=== PATIENT | female | born 1955 | race Caucasian/White ===

== ENCOUNTER 2020-11-11 19:03 | Observation (INO) | payer MEDICARE ==
[~2020-11-11] VITALS: Ht 172.7 cm; Wt 99.3 kg
[2020-11-12 00:45] LABS: HEMOGLOBIN 16.5 gm/dl (12.3-15.3); RED BLOOD COUNT 5.48 M/UL (4.00-5.10); WHITE BLOOD COUNT 22.6 K/UL (4.5-11.0)
[2020-11-12 01:25] LABS: BUN/CREATININE RATIO 12 (0-10)
[2020-11-12] MEDS ORDERED: LISINOPRIL20 MG PO (17:09)
[2020-11-12] MEDS ORDERED: HYDROCHLOROTHIA25 MG PO (17:10)
[2020-11-12] MEDS ORDERED: METOPROLOL SUCC25 MG PO (17:10)
[2020-11-12] MEDS ORDERED: LEVOCETIRIZINE D5 MG PO (17:11)
[2020-11-12] MEDS ORDERED: PROBIOTIC 2 BI1 EACH PO (17:12)
[2020-11-12] MEDS ORDERED: ADULT LOW DOSE81 MG PO (17:12)
[2020-11-12] MEDS ORDERED: VITAMIN D250 MCG PO (17:12)
[2020-11-12] MEDS ORDERED: APPLE CIDER VI500 MG PO (17:13)
[2020-11-13 13:51] LABS: BUN/CREATININE RATIO 18 (0-10)
[2020-11-13 15:28] LABS: RED BLOOD COUNT 4.79 M/UL (4.00-5.10); WHITE BLOOD COUNT 18.4 K/UL (4.5-11.0)
[2020-11-13 15:29] LABS: HEMOGLOBIN 13.9 gm/dl (12.3-15.3)
[2020-11-14] MEDS ORDERED: HYDROCODON-ACE1 EAC4 PO (12:10)
== END 2020-11-14 17:17 | disposition home or self-care (01) ==
LOC: ER1 19:03 → CDU 11-12 03:15 → M/S 11-12 12:36
PROVIDERS: Student in an Organized Health Care Education/Training Program; ADMIT Surgery
DX: K35.891 Other acute appendicitis without perforation, with gangrene (principal); I10 Essential (primary) hypertension; K21.9 Gastro-esophageal reflux disease without esophagitis; E66.01 Morbid (severe) obesity due to excess calories; Z85.3 Personal history of malignant neoplasm of breast; Z68.33 Body mass index [BMI] 33.0-33.9, adult; Z88.0 Allergy status to penicillin; Z88.2 Allergy status to sulfonamides; Z79.82 Long term (current) use of aspirin; Z79.899 Other long term (current) drug therapy; Z20.822 Contact with and (suspected) exposure to COVID-19
CPT/HCPCS: 36415; 80048; 80053; 81001; 82550; 82553; 83605; 83690; 83735; 83874; 84100; 84484; 85025; 85379; 93005; 94760; 96374; 96375; 96376; 99285; G0378; J1100; J1335; J2250; J2270; J2405; J2704; J3010; J7120; Q9967; U0002

== ENCOUNTER 2020-11-30 20:07 | Inpatient (IN) | payer MEDICARE ==
[~2020-11-30] VITALS: Ht 172.7 cm; Wt 97.5 kg
[~2020-11-30 20:07] MED LIST: ADULT LOW DOSE81 MG PO; APPLE CIDER VI500 MG PO; HYDROCHLOROTHIA25 MG PO; HYDROCODON-ACE1 EAC4 PO; LEVOCETIRIZINE D5 MG PO; LISINOPRIL20 MG PO; METOPROLOL SUCC25 MG PO; PROBIOTIC 2 BI1 EACH PO; VITAMIN D250 MCG PO
[2020-11-30 20:46] LABS: HEMOGLOBIN 14.6 gm/dl (12.3-15.3); RED BLOOD COUNT 4.93 M/UL (4.00-5.10); WHITE BLOOD COUNT 15.2 K/UL (4.5-11.0)
[2020-12-01 12:00] LABS: HEMOGLOBIN 11.8 gm/dl (12.3-15.3); RED BLOOD COUNT 4.02 M/UL (4.00-5.10)
[2020-12-01 12:10] LABS: BUN/CREATININE RATIO 9 (0-10)
== END 2020-12-05 18:01 | disposition home or self-care (01) | DRG 919 ==
LOC: ER1 20:07 → CDU 21:47 → MED SURG 4 21:47
PROVIDERS: Physician Assistant Medical; ADMIT Surgery
DX: T81.89XA Other complications of procedures, not elsewhere classified, initial encounter (principal); K55.049 Acute infarction of large intestine, extent unspecified; K56.600 Partial intestinal obstruction, unspecified as to cause; I10 Essential (primary) hypertension; Z20.822 Contact with and (suspected) exposure to COVID-19; D72.829 Elevated white blood cell count, unspecified; Z85.3 Personal history of malignant neoplasm of breast; Z90.49 Acquired absence of other specified parts of digestive tract; Z90.12 Acquired absence of left breast and nipple; Z98.51 Tubal ligation status; Z80.3 Family history of malignant neoplasm of breast; Z80.41 Family history of malignant neoplasm of ovary
CPT/HCPCS: 80048; 80053; 81001; 83605; 85025; 87040; 93005; 94640; 94760; 96374; 96375; 99285; J0692; J2270; J2405; J3480; Q9967; U0002

== ENCOUNTER 2020-12-10 16:31 | Emergency (ER) | payer MEDICARE ==
[2020-12-10 18:49] LABS: HEMOGLOBIN 13.9 gm/dl (12.3-15.3); RED BLOOD COUNT 4.81 M/UL (4.00-5.10); WHITE BLOOD COUNT 10.3 K/UL (4.5-11.0)
[2020-12-10 19:29] LABS: BUN/CREATININE RATIO 17 (0-10)
[2020-12-10] MEDS ORDERED: BENTYL 20MG TAB20 MG PO (21:38)
[2020-12-10] MEDS ORDERED: CEFUROXIME500 MG PO (21:38)
[2020-12-10] MEDS ORDERED: ZOFRAN ODT 4 MG4 MG PO (21:38)
[2020-12-10] MEDS ORDERED: FLAGYL500 MG PO (21:38)
== END 2020-12-10 22:14 | disposition home or self-care (01) ==
LOC: ER1 16:31
PROVIDERS: Nurse Practitioner
DX: K52.9 Noninfective gastroenteritis and colitis, unspecified (principal); N39.0 Urinary tract infection, site not specified; I10 Essential (primary) hypertension; Z86.16 Personal history of COVID-19; Z90.49 Acquired absence of other specified parts of digestive tract; Z90.89 Acquired absence of other organs; Z88.0 Allergy status to penicillin; Z88.1 Allergy status to other antibiotic agents
CPT/HCPCS: 80053; 81001; 83605; 83690; 85025; 86140; 87086; 96374; 96375; 99284; J2270; J2405; Q9967